=== PATIENT | male | born 1930 | race Caucasian/White ===

== ENCOUNTER → 2016-04-12 | Outpatient (CLI) | payer MEDICARE | END | disposition home or self-care (01) | LOC: PCVCIMAG 12:30 | PROVIDERS: ATTEND Internal Medicine Cardiovascular Disease | DX: I65.21 Occlusion and stenosis of right carotid artery (principal); I25.10 Atherosclerotic heart disease of native coronary artery without angina pectoris; E78.5 Hyperlipidemia, unspecified; Z95.1 Presence of aortocoronary bypass graft | CPT/HCPCS: 36415; 80061; 93005; 93880; G0463 ==

== ENCOUNTER → 2017-03-16 | Outpatient (CLI) | payer MEDICARE | END | disposition home or self-care (01) | LOC: PCVCCLINIC 15:15 | DX: I25.810 Atherosclerosis of coronary artery bypass graft(s) without angina pectoris (principal); E78.00 Pure hypercholesterolemia, unspecified; I65.29 Occlusion and stenosis of unspecified carotid artery; Z95.1 Presence of aortocoronary bypass graft; Z87.891 Personal history of nicotine dependence; Z79.899 Other long term (current) drug therapy; Z79.82 Long term (current) use of aspirin | CPT/HCPCS: 80061; 93005; G0463 ==

== ENCOUNTER → 2018-02-20 | Outpatient (CLI) | payer MEDICARE ==
--- NOTE | 2018-02-20 12:51 | PCVCIMAG ---
EXAM: BILATERAL CAROTID DUPLEX INDICATION: Carotid Occlusive Disease. Prior left carotid stent. FINDINGS: Doppler Measurements (centimeters per second): RIGHT: Peak CCA-79, Peak ECA-183, Diastolic ICA-21, Peak ICA-170, ICA/CCA Ratio-2.1. LEFT: Peak CCA-50, Peak ECA-52, Diastolic ICA-24, Peak ICA-88, ICA/CCA Ratio-1.7. RIGHT CAROTID: The carotid bulb has moderate plaque. The proximal internal carotid artery shows 60% stenosis. The common carotid artery shows no significant stenosis. The external carotid artery shows 60% stenosis. LEFT CAROTID: Previous stent upper common carotid artery and extending into the internal carotid artery. Moderate shadowing throughout the stent likely artifactual. The proximal internal carotid artery shows no significant stenosis. Mid and distal internal carotid artery shows good arterial waveforms. The common carotid artery shows no significant stenosis. The external carotid artery shows moderate stenosis. Antegrade flow in both vertebral arteries. IMPRESSION: 60% stenosis of the right internal carotid artery with moderate plaque. Previous left carotid stent maintaining adequate patency. Little overall change is since 2017 study. LOC:[id number]
== END | disposition home or self-care (01) ==
LOC: PCVCIMAG 10:34
PROVIDERS: ATTEND Internal Medicine Cardiovascular Disease
DX: I65.21 Occlusion and stenosis of right carotid artery (principal); I25.10 Atherosclerotic heart disease of native coronary artery without angina pectoris; E78.00 Pure hypercholesterolemia, unspecified; Z95.1 Presence of aortocoronary bypass graft; Z87.891 Personal history of nicotine dependence; Z79.82 Long term (current) use of aspirin
CPT/HCPCS: 93880; G0463